=== PATIENT | female | born 1990 | race African-American/Black ===

== ENCOUNTER 2018-09-04 19:33 | Emergency (ER) | payer OTHER ==
[~2018-09-04] VITALS: Ht 167.6 cm; Wt 90.7 kg
[2018-09-04 19:36] VITALS: BP 121/68
[2018-09-04] MEDS ORDERED: WELLBUTRIN SR150 MG PO ×2 (20:00→20:32)
[2018-09-04] MEDS ORDERED: BACTRIM DS TAB1 EACH PO (20:10)
[2018-09-04] MEDS ORDERED: NAPROSYN500 MG PO (20:10)
== END 2018-09-04 20:36 | disposition home or self-care (01) ==
LOC: ER 19:33
DX: L02.411 Cutaneous abscess of right axilla (principal); F32.9 Major depressive disorder, single episode, unspecified; Z79.899 Other long term (current) drug therapy

== ENCOUNTER 2018-10-20 15:52 | Emergency (ER) | payer OTHER ==
[~2018-10-20] VITALS: Ht 167.6 cm; Wt 95.3 kg
[~2018-10-20 15:52] MED LIST: BACTRIM DS TAB1 EACH PO; NAPROSYN500 MG PO; WELLBUTRIN SR150 MG PO
[2018-10-20 15:58] VITALS: BP 112/70
[2018-10-20 16:24] LABS: URINE BILIRUBIN NEGATIVE (Negative); URINE BLOOD NEGATIVE (Negative); URINE CLARITY CLEAR; URINE COLOR YELLOW; URINE GLUCOSE-RANDOM* NEGATIVE (Negative); URINE KETONES NEGATIVE (Negative); URINE LEUKOCYTES-REFLEX NEGATIVE (Negative); URINE NITRITE-REFLEX NEGATIVE (Negative); URINE PROTEIN (DIPSTICK) NEGATIVE (Negative); URINE SPECIFIC GRAVITY <= 1.005 (1.005-1.035); URINE UROBILINOGEN 0.2 E.U./dl (0.2-1.0)
[2018-10-20] MEDS ORDERED: WELLBUTRIN XL150 MG PO ×2 (16:39→16:48)
== END 2018-10-20 16:54 | disposition home or self-care (01) ==
LOC: ER 15:52
PROVIDERS: Nurse Practitioner
DX: R51 Headache (principal); Z76.0 Encounter for issue of repeat prescription